=== PATIENT | male | born 1995 | race Caucasian/White ===

== ENCOUNTER 2018-02-10 19:40 | Emergency (ER) | payer OTHER ==
[2018-02-10] MEDS ORDERED: ONDANSETRON DISINTEGRATING 4 MG TAB PO ONE (19:57)
[2018-02-10] MEDS ORDERED: LET GEL TOPICAL 1 EA SYR TP ONE (19:57)
[2018-02-10] MEDS ORDERED: IBUPROFEN 600 MG TAB PO ONE (19:57)
[2018-02-10] MEDS ORDERED: TDAP ADULT 0.5 ML INJ (BOOSTRIX) IM ONE (19:59)
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
[2018-02-10] MEDS ORDERED: PROMETHAZINE HCL 25 MG TAB ONE (20:26)
[2018-02-10] MEDS ORDERED: ACETAMINOPHEN 500 MG TAB ONE (20:26)
[2018-02-10] MEDS ORDERED: PROMETHAZINE HCL 25 MG TAB PO ONE (20:27)
[2018-02-10] MEDS ORDERED: ACETAMINOPHEN 500 MG TAB PO ONE (20:27)
[2018-02-10] MEDS ORDERED: SKIN ADHESIVE (DERMABOND) 1 EACH TP ONE (20:54)
[2018-02-10] MEDS ORDERED: AMOXICILLIN/CLAVULANATE POT 875/125 MG TAB PO ONE (21:01)
[2018-02-10] MEDS ORDERED: ONDANSETRON 4MG PREPACK#2 BTL TAKEHOME ONE (21:05)
[2018-02-10] MEDS ORDERED: OXYCODONE/APAP 5/325MG PREPACK#4 BTL TAKEHOME ONE (21:05)
[2018-02-10 21:38] VITALS: BP 127/63
== END 2018-02-10 21:39 | disposition home or self-care (01) ==
PROC: 0HQ1XZZ Repair Face Skin, External Approach (ICD-10-PCS; principal; 2018-02-10)
DX: S02.402A Zygomatic fracture, unspecified side, initial encounter for closed fracture (principal); S06.0X0A Concussion without loss of consciousness, initial encounter; S01.411A Laceration without foreign body of right cheek and temporomandibular area, initial encounter; S63.501A Unspecified sprain of right wrist, initial encounter; S80.211A Abrasion, right knee, initial encounter; S80.212A Abrasion, left knee, initial encounter; J45.909 Unspecified asthma, uncomplicated; Z87.891 Personal history of nicotine dependence; Z23 Encounter for immunization; V18.0XXA Pedal cycle driver injured in noncollision transport accident in nontraffic accident, initial encounter; Y99.8 Other external cause status; Y93.55 Activity, bike riding
CPT/HCPCS: L3807